=== PATIENT | male | born 1990 | race Two or more races ===

== ENCOUNTER 2024-04-19 08:32 | Emergency (ER) | payer MEDICAID, OTHER ==
[~2024-04-19] VITALS: Ht 160 cm; Wt 98.3 kg
[2024-04-19 09:45] LABS: Basophils # (auto) 0 10 ^3/uL (0-0.2); Basophils % (auto) 0.3 % (0.0-2.0); Eosinophils # (auto) 0.2 10 ^3/uL (0-0.8); Eosinophils % (auto) 2.6 % (0.0-7.0); Hematocrit 49.1 % (41.0-53.0); Hemoglobin 16.3 g/dL (13.5-17.5); Lymphocytes # (auto) 1.7 10 ^3/uL (0.4-5.4); Lymphocytes % (auto) 27.3 % (10.0-50.0); Mean Corpuscular Hemoglobin 30.6 pg (28.0-32.0); Mean Corpuscular Hgb Conc. 33.3 g/dL (32.0-36.0); Mean Corpuscular Volume 91.9 fL (80.0-100.0); Monocytes # (auto) 0.5 10 ^3/uL (0-1.3); Monocytes % (auto) 7.3 % (0.0-12.0); Neutrophils % (auto) 62.5 % (37.0-80.0); Nucleated Red Blood Cells % 0.1 %; Platelet Count (auto) 169 10^3/uL (140-450); Red Blood Cells 5.34 10^6/uL (4.5-5.90); White Blood Cell 6.4 10^3/uL (4.4-10.8)
[2024-04-19 09:51] LABS: Chloride 106 mmol/L (98-107); Potassium 4.1 mmol/L (3.5-5.1); Sodium 139 mmol/L (136-145)
[2024-04-19 09:52] LABS: Anion Gap 6 (5-15); Calcium 10.1 mg/dL (8.7-10.4); Carbon Dioxide 27 mmol/L (20-31)
[2024-04-19 09:57] LABS: BUN/Creatinine Ratio 17.8 (10.0-20.0); Blood Urea Nitrogen 16 mg/dL (9-23); Glucose 93 mg/dL (74-106)
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
--- NOTE | 2024-04-19 10:51 | DVH ---
US GALLBLADDER HISTORY: ruq pain COMPARISON: None TECHNIQUE: Transverse and longitudinal grayscale and color sonographic images were obtained of the ab domen. FINDINGS: Liver: - Size: 19.1 cm - Echogenicity: Hyperechoic - Surface Contour: Smooth - Liver Lesion(s): None - Portal Vein: Patent and forward flowing. - Bile Ducts: Normal. The common bile duct measures 4.2 mm. Gallbladder: Normal. The sonographic minor sign is negative. Pancreas: Portions not obscured by bowel gas are normal. Kidneys: - Right kidney size: 10.3 cm. There is no hydronephrosis, renal calculi, or mass lesion. - Left kidney size: Cm. There is no hydronephrosis, renal calculi, or mass lesion. Aorta and Inferior Vena Cava: The visualized portions of the abdominal aorta and intrahepatic vena ca va are normal. Other: None IMPRESSION: Hepatomegaly and hepatic steatosis.
[2024-04-19 10:54] LABS: Bilirubin, Total 0.4 mg/dL (0.2-1.0); Total Protein 7.6 g/dL (5.7-8.2)
[2024-04-19 10:57] LABS: Alanine Aminotransferase 183 U/L (7-40); Alkaline Phosphatase 123 U/L (46-116); Aspartate Aminotransferase 83 U/L (13-40)
[2024-04-19 11:13] LABS: Lipase 30 U/L (12-53)
[2024-04-19] MEDS ORDERED: PANT40TA2 PO (11:44)
[2024-04-19 11:55] VITALS: BP 128/87; PULSE 72; RESP 16; TEMP 98.3; O2SAT 98
== END 2024-04-19 11:57 | disposition home or self-care (01) ==
LOC: ER 08:32
DX: R10.13 Epigastric pain (principal); K76.0 Fatty (change of) liver, not elsewhere classified; Z98.890 Other specified postprocedural states
CPT/HCPCS: 36415; 76705; 80053; 83690; 85025

== ENCOUNTER 2024-05-03 11:55 | Emergency (ER) | payer MEDICAID ==
[~2024-05-03] VITALS: Ht 177.8 cm; Wt 100.0 kg
[~2024-05-03 11:55] MED LIST: PANT40TA2 PO
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
[2024-05-03] MEDS: SODIUM CHLORIDE 0.9% 1,000 ML IV ONE (12:34)
[2024-05-03] MEDS: THIAMINE 100mg/ml INJ (200mg/2ml VIAL) IV ONE (12:34)
--- NOTE | 2024-05-03 13:16 | DVH ---
Exam: CT HEAD WITHOUT CONTRAST History: altered Technique: [address] images through the posterior fossa and the supratentorial compart ment were acquired without contrast and imaged using soft tissue and bone algorithms. RADIATION DOSE: DLP 1074.44 mGy.cm; CTDI vol 60.69 mGy. Comparison: None Findings: There is no evidence of an intracranial hemorrhage, acute large vessel infarct, mass effect, or midli ne shift. The calvarium, orbits, paranasal sinuses, sella, middle ears, and mastoids are unremarkable. The superficial soft tissues are within normal limits. Impression: 1. No acute intracranial abnormality.
[2024-05-03 14:12] LABS: Basophils # (auto) 0 10 ^3/uL (0-0.2); Basophils % (auto) 0.4 % (0.0-2.0); Eosinophils # (auto) 0 10 ^3/uL (0-0.8); Eosinophils % (auto) 0.9 % (0.0-7.0); Hematocrit 46.1 % (41.0-53.0); Hemoglobin 15.4 g/dL (13.5-17.5); Lymphocytes # (auto) 2.1 10 ^3/uL (0.4-5.4); Lymphocytes % (auto) 40.3 % (10.0-50.0); Mean Corpuscular Hemoglobin 30.4 pg (28.0-32.0); Mean Corpuscular Hgb Conc. 33.4 g/dL (32.0-36.0); Monocytes # (auto) 0.4 10 ^3/uL (0-1.3); Neutrophils # (auto) 2.7 10 ^3/uL (1.6-8.6); Neutrophils % (auto) 51.4 % (37.0-80.0); Nucleated Red Blood Cells % 0.2 %; Platelet Count (auto) 225 10^3/uL (140-450); Red Blood Cells 5.07 10^6/uL (4.5-5.90); White Blood Cell 5.3 10^3/uL (4.4-10.8)
[2024-05-03 14:13] LABS: Potassium 3.5 mmol/L (3.5-5.1); Sodium 142 mmol/L (136-145)
[2024-05-03 14:14] LABS: Anion Gap 10 (5-15); Carbon Dioxide 23 mmol/L (20-31)
[2024-05-03 14:15] LABS: Calcium 8.7 mg/dL (8.7-10.4); Chloride 109 mmol/L (98-107)
[2024-05-03 14:19] LABS: BUN/Creatinine Ratio 10.8 (10.0-20.0); Blood Urea Nitrogen 9 mg/dL (9-23); Glucose 99 mg/dL (74-106)
[2024-05-03 14:20] LABS: Blood Alcohol 283.8 mg/dL (<10)
[2024-05-03 18:00] VITALS: PULSE 102; TEMP 98.3
[2024-05-03 19:00] VITALS: BP 99/60; RESP 13; O2SAT 94
[2024-05-03] MEDS ORDERED: TEMAZEPAM 15 MG CAP PO PRN (19:15)
[2024-05-03] MEDS ORDERED: ONDANSETRON HCL 4 MG/2 ML VIAL IV PRN (19:15)
[2024-05-03] MEDS ORDERED: chlordiazePOXIDE HCL 25 MG CAP PO PRN (19:15)
[2024-05-03] MEDS ORDERED: LORazepam 2MG/ML-1ML VIAL IV PRN (19:15)
[2024-05-04] MEDS ORDERED: FOLIC ACID 1 MG, MAGNESIUM SULF SDV 50% 8 MEQ, MULTIPLE VITAMIN 10 ML, THIAMINE INJ 100... INJ SCH (18:00)
== END 2024-05-03 20:11 | disposition left against medical advice (07) ==
LOC: EDBD 11:55 → EDUNIT# 11:55 → ER 12:10 → OVERFLOW 19:14 → UNDOADMIN 19:14 → UNDODISIN 20:11 → OVERFLOW 20:11 → ER 20:11
DX: G93.41 Metabolic encephalopathy (principal); K76.9 Liver disease, unspecified
CPT/HCPCS: 36415; 70450; 80048; 80320; 85025; 96361; 96374; 99291; J3411; G0378

== ENCOUNTER 2024-05-05 05:15 | Emergency (ER) | payer MEDICAID ==
[~2024-05-05] VITALS: Ht 165.1 cm; Wt 81.8 kg
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
[2024-05-05] MEDS: SODIUM CHLORIDE 0.9% 1,000 ML IVB ONE (07:48)
[2024-05-05] MEDS: THIAMINE 100mg/ml INJ (200mg/2ml VIAL) IV ONE (08:29)
[2024-05-05 08:35] VITALS: BP 107/62; PULSE 93; RESP 18; TEMP 98.2; O2SAT 96
[2024-05-05 10:17] LABS: Benzodiazephine Screen, Urine Neg (NEGATIVE)
[2024-05-05 10:41] LABS: Amphetamine Screen, Urine Neg (NEGATIVE); Barbiturate Scree,Urine Neg (NEGATIVE); Cannabinoid Screen, Urine Neg (NEGATIVE); Cocaine Screen, Urine Neg (NEGATIVE); Opiate Scree,Urine Neg (NEGATIVE); Phencyclidine Screen, Urine Neg (NEGATIVE)
== END 2024-05-05 09:13 | disposition left against medical advice (07) ==
LOC: EDBD 05:15 → EDSEX 05:15 → ER 05:15
DX: G93.41 Metabolic encephalopathy (principal); F10.129 Alcohol abuse with intoxication, unspecified; Z79.899 Other long term (current) drug therapy
CPT/HCPCS: 36415; 80307; 80320; 96361; 96374; 99283; J3411; J7030

== ENCOUNTER 2024-05-05 18:29 | Emergency (ER) | payer MEDICAID | END 2024-05-05 18:58 | disposition left against medical advice (07) | LOC: ER 18:31 | DX: R31.9 Hematuria, unspecified (principal); Z53.21 Procedure and treatment not carried out due to patient leaving prior to being seen by health care provider ==

== ENCOUNTER 2024-07-06 15:15 | Emergency (ER) | payer MEDICAID ==
[~2024-07-06] VITALS: Ht 167.6 cm; Wt 99.9 kg
[2024-07-06 16:01] VITALS: BP 140/101; PULSE 94; RESP 16; TEMP 99.1; O2SAT 95
--- NOTE | 2024-07-06 16:57 | ED.PDOC ---
History of Present Illness(SKN HPI Comments 34 year M w/ no medical hx presents for a possible abscess to the left mandible x 3 days that is described as a tender lump. Never had this before Possible cause: unknown Tried OTC tylenol w/ minimal improvement Aggravated to touch. Denies f/c/n/v/d Denies trouble swallowing and moving the neck Denies drainage from the affected side Denies restricted movement to the mandible Chief Complaint: Abscess Time Seen by MD: 15:58 Primary Care Provider: unknown History of Present Illness: Nurses Notes, Medications, Allergies Allergies: Coded Allergies: NO KNOWN ALLERGIES (Unverified , 04/19/24) Home Meds Active Scripts Ibuprofen (Ibuprofen) 800 Mg Tab, 1 TAB PO TID PRN for 5 Days, #15 TAB Prov:MARI FRANCOIS POSITION CLASSIFIER 07/06/24 Doxycycline Hyclate (Doxycycline Hyclate) 100 Mg Cap, 100 MG PO BID for 7 Days, #14 CAP Prov:MARI FRANCOIS POSITION CLASSIFIER 07/06/24 Pantoprazole Sodium Sesquihydr (Protonix) 40 Mg Tab, 40 MG PO DAILY, #30 TAB Prov:JOSE LUGO MD 04/19/24 Information Source: Patient Mode of Arrival: Ambulatory Past Medical History PAST MEDICAL HISTORY: Denies Surgical History: Denies all surgeries Family History Family History: Reviewed,noncontributory to illness Social History Smoker: Non-Smoker Alcohol: Heavy Drugs: Denies Drug Use Lives In: Home All Other Systems: Reviewed and Negative (Per HPI) Physical Exam General Appearance: No Apparent Distress, Normal HEENT: Normal ENT Inspection, Pharynx Normal, TMs Normal Neck: Full Range of Motion, Non-Tender, Normal, Normal Inspection Respiratory: Chest Non-Tender, Lungs Clear, No Accessory Muscle Use, No Respiratory Distress, Normal Breath Sounds Cardiovascular: No Murmur, No Gallop, Regular Rate/Rhythm Breast Exam: Deferred Gastrointestinal: No Organomegaly, Non Tender, No Pulsatile Mass, Normal Bowel Sounds, Soft Genitalia: Deferred Pelvic: Deferred Rectal: Deferred Extremities: No calf tenderness, Normal capillary refill, Normal inspection, Normal range of motion, Non-tender, No pedal edema Musculoskeletal : Apperance: Normal Neurologic: Alert, No Motor Deficits, Normal Affect, Normal Mood, No Sensory Deficits Cerebellar Function: Normal Reflexes: Normal Skin: Dry, Normal Color, Warm Lymphatic: No Adenopathy Was a procedure done? Was a procedure done?: Yes Sedation Sedation?: No Incision and Drainage Incision and Drainage: Abscess Location L mandible Anesthetic: Lidocaine Preparation: Betadine, Saline Incision and Wound: Pus, Blood Informed consent obtained: Yes Risks/benefits/alt described: Yes Images 1 - 2x2 cm non erythematous fluctuant abscess. TTP. No crepitus to palpation. Full ROM of manible. Differential Diagnosis (INTG) Differential Diagnosis: Other Differential Diagnosis: Abscess, Other (Cyst) X-Ray, Labs, Meds, VS Vital Signs Date Time Temp Pulse Resp B/P (MAP) Pulse Ox O2 Delivery O2 Flow Rate FiO2 07/06/24 16:01 94 16 95 Room Air 07/06/24 16:01 99.1 94 16 140/101 (114) 95 99.1 07/06/24 15:36 99.1 98 16 140/101 (114) 95 99.1 Lab Test 07/06/24 17:35 Range/Units White Blood Count 9.6 4.4-10.8 10^3/uL Red Blood Count 5.11 4.5-5.90 10^6/uL Hemoglobin 15.9 13.5-17.5 g/dL Hematocrit 46.8 41.0-53.0 % Mean Corpuscular Volume 91.7 80.0-100.0 fL Mean Corpuscular Hemoglobin 31.2 28.0-32.0 pg Mean Corpuscular Hemoglobin Concent 34.0 32.0-36.0 g/dL Red Cell Distribution Width 14.1 11.8-14.3 % Platelet Count 189 140-450 10^3/uL Mean Platelet Volume 9.5 6.9-10.8 fL Neutrophils (%) (Auto) 68.9 37.0-80.0 % Lymphocytes (%) (Auto) 20.6 10.0-50.0 % Monocytes (%) (Auto) 8.3 0.0-12.0 % Eosinophils (%) (Auto) 1.7 0.0-7.0 % Basophils (%) (Auto) 0.5 0.0-2.0 % Neutrophils # (Auto) 6.6 1.6-8.6 10 ^3/uL Lymphocytes # (Auto) 2.0 0.4-5.4 10 ^3/uL Monocytes # (Auto) 0.8 0-1.3 10 ^3/uL Eosinophils # (Auto) 0.2 0-0.8 10 ^3/uL Basophils # (Auto) 0 0-0.2 10 ^3/uL Nucleated Red Blood Cells 0.1 % Sodium Level 140 136-145 mmol/L Potassium Level 4.1 3.5-5.1 mmol/L Chloride Level 107 98-107 mmol/L Carbon Dioxide Level 26 20-31 mmol/L Anion Gap 7 5-15 Blood Urea Nitrogen 11 9-23 mg/dL Creatinine 0.97 0.700-1.30 mg/dL Glomerular Filtration Rate Calc 105 >90 mL/min BUN/Creatinine Ratio 11.3 10.0-20.0 Serum Glucose 97 74-106 mg/dL Calcium Level 9.8 8.7-10.4 mg/dL Current Medications Medications (Trade) Dose Ordered Sig/Ga Route Start Time Stop Time Status Last Admin Acetaminophen/ Hydrocodone Bitart ([place] 5/325MG Tab) 2 tab ONCE ONCE PO 07/06/24 18:30 07/06/24 18:31 DC 07/06/24 18:30 PATIENT: DERICK RIVERAACCT: [id number]: [id number] : 1990 LOC: ER ROOM / BED: / AGE / SEX: 34 / M ADM STATUS: REG ER SERVICE [id number] ORDERING PHYSICIAN: VIRAL GILLIAM NP PROCEDURE(s): FACIC - MAXILLOFACIAL WITH REASON: large cyst vs abscess near left mandible ORDER NUMBER(s): [id number], ACCESSION NUMBER(s): [id number] EXAM: CT MAXILLOFACIAL WITH INDICATION: large cyst vs abscess near left mandible EXAM DATE: 07/06/2024 06:01 PM COMPARISON: None TECHNIQUE: Multiple axial CT images of the maxilla and face were obtained using bone algorithm. Axial and coronal reformatting was done. Bone and soft tissue windows were reviewed. IV contrast was administered Radiation Dose Information: CT Dose: CTDI volume is 66.95 mGy. Dose-length product is 1597.61 mGy*cm Findings: There is no evidence of an acute fracture or traumatic subluxations. No evidence of lytic, blastic, or osseous destructive lesions. The paranasal sinuses, middle ear cavities, and mastoid air cells are normally aerated. The globes and orbits are within normal limits. The nasal septum, nasal cavity, nasopharynx, and oropharynx are grossly unremarkable. The thyroid gland is unremarkable. 2.2 x 1.6 cm focal fluid collection superficial to the left parotid gland with mild peripheral enhancement and adjacent inflammatory changes. Impression: 1. No acute osseous abnormalities. 2. Small abscess superficial to the left parotid gland. ATED BY: HAWA ALCAZAR DO DICTATED DATE/TIME: 07/06/241842 SIGNED BY: HAWA ALCAZAR DO SIGNED DATE/TIME: 07/06/241842 CC: X-Ray, Labs, Meds, VS Comment This patient presents with signs and symptoms consistent with a cutaneous abscess. The abscesses localized without any signs deep soft tissue infection based on physical examination and based on shared decision-making the patient agreed to incision and drainage. Differentials considered but not limited to abscess, folliculitis,. Verbal informed consent was obtained from the patient. Risks and benefits and alternatives and complications to performing an I and D were discussed. The patient understand the risks include, but are not limited to scarring, underline nerve injury, bleeding, new injury, and new infection. Incision was make using 11 blade scalpel and 0.5 incision was made overlying the abscess. Loculations were bluntly dissected using hemostat however mild drainage was removed. Patient tolerated procedure well. Due to minimal drainage, patient will undergo CT of the affected area to determine cyst, vs abscess vs other pathology. Ordered IV hep lock, cbc, bmp, CT imaging Labs reviewed. CBC, BMP reassuring and WNL. Patient will be endorsed to [facility] efraín Francois for continuity of care. Signed out at 18:[address] report at this time: 2. Small abscess superficial to the left parotid gland. Prescribed p.o. antibiotics for presentation of symptoms Complete course of antibiotic therapy even if symptoms improve or resolve. There should be no leftover antibiotics as this can lead to antibiotic resistant bacteria and even worse infection. Patient verbalized understanding. Potential side effects discussed with patient including abdominal pain, nausea, diarrhea. Patient is stable for discharge at this time. External notes reviewed. Test results and diagnostic imaging interpreted. All diagnostic findings, discharge care, education and instructions provided Follow-up with PCP in 2 to 3 days Patient verbalized understanding and agreed to treatment plan Vital signs stable, afebrile, no acute distress noted Patient ambulatory with strong steady gait Advised to return precautions for any new or worsening symptoms, return to ER immediately for re-evaluation Patient is aware that the purpose of this visit was for an acute medical emergency requiring emergent stabilization. Chronic conditions, including malignancies have not been ruled out. Patient is instructed to follow up with PCP as directed and discharge instructions for continued care and workup. If unable to arrange follow-up, patient is to return to the emergency department for reassessment. Patient (parent or legal guardian if applicable) was given verbal and written discharge instructions and acknowledges understanding. Time of 1ST Reevaluation: 17:58 Reevaluation 1ST: Improved Patient Education/Counseling: Diagnosis, Treatment Family Education/Counseling: Diagnosis, Treatment Departure 1 Departure Time of Disposition: 18:13 Impression: Primary Impression: Abscess Disposition: HOME / SELF CARE / HOMELESS Condition: Stable e-Prescriptions Ibuprofen (Ibuprofen) 800 Mg Tab 1 TAB PO TID PRN for 5 Days, #15 TAB Prov: MARI FRANCOIS 07/06/24 Doxycycline Hyclate (Doxycycline Hyclate) 100 Mg Cap 100 MG PO BID for 7 Days, #14 CAP Prov: MARI FRANCOIS 07/06/24 Discharged With: Self Critical Care Note Critical Care Time?: No Stability Stability form required: No Heart Score Heart Score: Heart Score Response (Comments) Value History N/A 0 EKG N/A 0 Age N/A 0 Risk Factors N/A 0 Troponin N/A 0 Total 0 VIRAL GILLIAM CHEF UNDER Jul 06, 2024 16:57 MARI FRANCOIS Jul 06, 2024 19:07
[2024-07-06] MEDS: IOHEXOL 300 MG/ML 100ML BOTTLE IJ ONE (17:38)
[2024-07-06 17:49] LABS: Basophils # (auto) 0 10 ^3/uL (0-0.2); Basophils % (auto) 0.5 % (0.0-2.0); Eosinophils # (auto) 0.2 10 ^3/uL (0-0.8); Eosinophils % (auto) 1.7 % (0.0-7.0); Hematocrit 46.8 % (41.0-53.0); Hemoglobin 15.9 g/dL (13.5-17.5); Lymphocytes % (auto) 20.6 % (10.0-50.0); Mean Corpuscular Hemoglobin 31.2 pg (28.0-32.0); Mean Corpuscular Volume 91.7 fL (80.0-100.0); Monocytes # (auto) 0.8 10 ^3/uL (0-1.3); Monocytes % (auto) 8.3 % (0.0-12.0); Neutrophils # (auto) 6.6 10 ^3/uL (1.6-8.6); Neutrophils % (auto) 68.9 % (37.0-80.0); Nucleated Red Blood Cells % 0.1 %; Platelet Count (auto) 189 10^3/uL (140-450); Red Blood Cells 5.11 10^6/uL (4.5-5.90); Red Cell Distribution Width 14.1 % (11.8-14.3); White Blood Cell 9.6 10^3/uL (4.4-10.8)
[2024-07-06 17:59] LABS: Chloride 107 mmol/L (98-107); Potassium 4.1 mmol/L (3.5-5.1); Sodium 140 mmol/L (136-145)
[2024-07-06 18:00] LABS: Anion Gap 7 (5-15); Calcium 9.8 mg/dL (8.7-10.4); Carbon Dioxide 26 mmol/L (20-31)
[2024-07-06 18:05] LABS: BUN/Creatinine Ratio 11.3 (10.0-20.0); Blood Urea Nitrogen 11 mg/dL (9-23); Glucose 97 mg/dL (74-106)
[2024-07-06] MEDS: cefTRIAXone 1GM/50ML D5W 50 ML IV ONE (18:30)
[2024-07-06] MEDS: HYDROcodone-ACET 5/325MG TAB PO ONE (18:30)
--- NOTE | 2024-07-06 18:45 | DVH ---
EXAM: CT MAXILLOFACIAL WITH INDICATION: large cyst vs abscess near left mandible EXAM DATE: 07/06/2024 06:01 PM COMPARISON: None TECHNIQUE: Multiple axial CT images of the maxilla and face were obtained using bone algorithm. Axial and coronal reformatting was done. Bone and soft tissue windows were reviewed. IV contrast was administered Radiation Dose Information: CT Dose: CTDI volume is 66.95 mGy. Dose-length product is 1597.61 mGy*cm Findings: There is no evidence of an acute fracture or traumatic subluxations. No evidence of lytic, blastic, or osseous destructive lesions. The paranasal sinuses, middle ear cavities, and mastoid air cells are normally aerated. The globes an d orbits are within normal limits. The nasal septum, nasal cavity, nasopharynx, and oropharynx are grossly unremarkable. The thyroid gland is unremarkable. 2.2 x 1.6 cm focal fluid collection superficial to the left paroti d gland with mild peripheral enhancement and adjacent inflammatory changes. Impression: 1. No acute osseous abnormalities. 2. Small abscess superficial to the left parotid gland.
[2024-07-06] MEDS ORDERED: IBUP-1456 PO (19:07)
[2024-07-06] MEDS ORDERED: DOXY100C4 PO (19:07)
== END 2024-07-06 19:14 | disposition home or self-care (01) ==
LOC: ER 15:15
DX: L02.91 Cutaneous abscess, unspecified (principal); M27.2 Inflammatory conditions of jaws; R68.84 Jaw pain
CPT/HCPCS: 10060; 36415; 70487; 80048; 85025; 99285; Q9967